=== PATIENT | female | born 1975 | race Caucasian/White ===

== ENCOUNTER 2016-12-30 17:36 | Emergency (ER) | payer MEDICAID ==
[~2016-12-30] VITALS: Ht 157.5 cm; Wt 59.0 kg
[2016-12-30 17:40] VITALS: Ht 157.5 cm; Wt 59.0 kg
[2016-12-30] MEDS ORDERED: KETOROLAC 15 MG INJ IM STA (18:18)
[2016-12-30] MEDS ORDERED: DIAZEPAM 5 MG TAB PO ONE (18:30)
[2016-12-30 18:58] LABS: URINE BLOOD (Dip) POC Trace-lysed (NEGATIVE)
--- NOTE | 2016-12-30 20:53 | RADRPT ---
PROCEDURE: XR Lumbar Spine. CLINICAL INDICATION: Lumbar spine pain. TECHNIQUE: AP, lateral the and cone-down lateral view of the lumbar spine were obtained. COMPARISON: No prior studies are available for comparison. FINDINGS: The alignment of the lumbar spine is within normal limits. The vertebral body heights and marrow de nsity are normal in appearance. There is preservation of the intervertebral disc spaces. There is no significant facet spondylosis. The neural foramina appear patent. The paraspinal soft tissues u nremarkable. The posterior elements normal in appearance. IMPRESSION: 1. Normal radiographs of the lumbar spine. 2. No evidence of fracture or significant degenerative disc disease. RPTAT: HGAS .Bharathi Jimenez MD, MD Date Time Electronically viewed and signed by .Bharathi Jimenez MD, on 12/30/2016 20:53 .S/
--- NOTE | 2016-12-30 21:23 | ERD ---
ER Documentation Chief Complaint Date/Time DATE: 12/30/16 TIME: 21:18 Chief Complaint 9/10 lower back pain x 1 hour HPI This 41-year-old female presents to emergency department with sudden onset of back pain. 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 Patient needed assistance. She is having difficulty ambulating, and finding position of comfort. Pain is sharp , nonradiating, without numbness or tingling reported to lower extremities. Patient has no alteration in bowel or bladder, no incontinence, patient is not dragging affected foot or reporting loss of sensation. ROS All systems reviewed and are negative except as per history of present illness. Medications Home Meds Active Scripts Ibuprofen* (Motrin*) 600 Mg Tab, 600 MG PO Q6, #30 TAB Prov:[id number] 12/30/16 Allergies Allergies: Coded Allergies: No Known Allergy (Unverified , 12/30/16) PMhx/Soc Medical and Surgical Hx: pt denies Medical Hx, pt denies Surgical Hx History of Surgery: No Anesthesia Reaction: No Hx Neurological Disorder: No Hx Respiratory Disorders: No Hx Cardiac Disorders: No Hx Psychiatric Problems: No Hx Miscellaneous Medical Probl: No Hx Alcohol Use: No Hx Substance Use: No Hx Tobacco Use: No Smoking Status: Never smoker Physical Exam Vitals Vitals stable, triage notes reviewed Physical Exam Const: Well-appearing, well-nourished, in obvious discomfort no acute distress Head: Atraumatic Eyes: Normal Conjunctiva, PERRLA, EOMI ENT: Normal External Ears, Nose and Mouth, mucous membranes Neck: Resp: Respirations even and unlabored, no respiratory distress Cardio: Abd: Soft, non tender, non distended. No CVA tenderness Skin: No petechiae or rashes Back: Back Exam: Skin: No bruising or rash Compartments: Soft Motor: Normal flexion and extension of bilateral hip/knee/ ankle/foot straight leg rises positive on right at 45, no pain with abduction, pain with abduction, positive on the left at 90 Sensation: Intact to light touch throughout Bones: No midline TTP Ext: No cyanosis, or edema Neur: Awake and alert Psych: Normal Mood and Affect Results 24 hrs Laboratory Tests Test 12/30/16 19:03 Bedside Urine pH (LAB) 5.5 Bedside Urine Protein (LAB) Negative Bedside Urine Glucose (UA) Negative Bedside Urine Ketones (LAB) Negative Bedside Urine Blood Trace-lysed Bedside Urine Nitrite (LAB) Negative Bedside Urine Leukocyte Esterase (L Negative Current Medications Medications (Trade) Dose Ordered Sig/Rossana Route PRN Reason Start Time Stop Time Status Last Admin Dose Admin Ketorolac Tromethamine (Toradol) 15 mg ONCE STAT IM 12/30/16 18:18 12/30/16 18:21 DC 12/30/16 18:47 Diazepam (Valium) 5 mg ONCE ONCE PO 12/30/16 18:30 12/30/16 18:31 DC Patient breast-feeding, Valium discontinued, Urinalysis negative for any evidence of infection, no leukocytosis, nitrates, or microscopic Procedures/MDM PROCEDURE: XR Lumbar Spine. CLINICAL INDICATION: Lumbar spine pain. TECHNIQUE: AP, lateral the and cone-down lateral view of the lumbar spine were obtained. COMPARISON: No prior studies are available for comparison. FINDINGS: The alignment of the lumbar spine is within normal limits. The vertebral body heights and marrow density are normal in appearance. There is preservation of the intervertebral disc spaces. There is no significant facet spondylosis. The neural foramina appear patent. The paraspinal soft tissues unremarkable. The posterior elements normal in appearance. IMPRESSION: 1. Normal radiographs of the lumbar spine. 2. No evidence of fracture or significant degenerative disc disease. 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 Patient denies any past medical history of back pain, cauda equina syndrome is not suspected. Degenerative disc disease or herniated disc has been ruled out by a normal x-ray. Patient is diagnosed with back pain, sent home prescription for ibuprofen, 600 mg 1 tab p.o. every 6 hours as needed pain. Stretching, rest , ice, discussed. Patient instructed to follow-up with primary care physician in 5-7 days if symptoms fail to improve as anticipated, return to emergency department for change in bowel or bladder, incontinence, difficulty ambulating, nausea vomiting fever chills. I feel the patient is stable for discharge at this time. I have discussed results, examination findings, the treatment plan with the patient and family present prior to discharge. Indications for emergent reevaluation, side effects of medication were also discussed. All questions were answered. Patient verbalizes understanding and agrees with plan of care. Departure Diagnosis: Primary Impression: Back pain Back pain location: low back pain Chronicity: acute Back pain laterality: bilateral Sciatica presence: without sciatica Qualified Code: M54.5 - Acute bilateral low back pain without sciatica Condition: Good Patient Instructions: Back Pain (Acute Or Chronic) Additional Instructions: Thank you for for coming to [facility] for your care today. Please ask your nurse or provider if you have questions about your care today and do not leave until all your questions have been answered. Please use any medications given as directed and follow-up with your doctor (or the doctor you were referred to) in the next 2-3 days. If you do not have a primary care doctor you may [place] [facility] [place] ([place] You may also use motrin and tylenol as needed for fever and/or pain unless instructed otherwise by your provider or nurse. Indications for more urgent follow-up have been discussed, but you may return to the Emergency Department at ANY time for any worrisome or worsening symptoms. If you have abdominal pain, please know that no test or exam you received is perfect and you should follow up within 8 hours for continued pain. If you had any imaging studies today, such as an X-Ray or CT Scan, these studies will be reviewed later by a radiologist. You will be called if there are important findings that were not identified today, so make sure the contact information you provided at registration is correct. If you received any narcotic pain control medicine today, such as Vicodin, Morphine or Dilaudid, your coordination and judgment may be affected for a number of hours. Please do not drive or operate heavy machinery, and you may want someone to assist you at home. If you were given a prescription for narcotic medication, be aware that it is very addictive- use sparingly and only if necessary. JT MICHEL Dec 30, 2016 21:23
[2016-12-30] MEDS ORDERED: IBUP-1542 PO (21:25)
[2016-12-30 21:31] VITALS: BP 117/68; PULSE 60; RESP 16
[2017-01-14 16:18] LABS: URINE BLOOD (Dip) POC Trace-lysed (NEGATIVE)
== END 2016-12-30 21:33 | disposition home or self-care (01) ==
LOC: FTE 17:36
DX: M54.5 Low back pain (principal)
CPT/HCPCS: 72100; 81003; 96372; J1885; Z7502